=== PATIENT | female | born 1995 | race Caucasian/White ===

== ENCOUNTER 2018-02-09 02:53 | Emergency (ER) | payer BC ==
[2018-02-09 03:10] VITALS: BP 103/70; PULSE 70; RESP 18; TEMP 98.3
--- NOTE | 2018-02-09 03:27 | C.PDOC ---
History Of Present Illness Patient states she woke up and felt she had trouble breathing and went to rest room and felt congestion and lightheaded. Admits to feeling under the weather for 2 days. Time Seen by Provider: 02/09/18 03:19 Chief Complaint (Nursing): Dizziness/Lightheaded History Per: Patient History/Exam Limitations: no limitations Onset/Duration Of Symptoms: Days Past Medical History Reviewed: Historical Data, Nursing Documentation, Vital Signs Vital Signs: Last Vital Signs Temp 98.3 F 02/09/18 03:03 Pulse 70 02/09/18 03:03 Resp 18 02/09/18 03:03 BP 103/70 02/09/18 03:03 Pulse Ox - Medical History PMH: No Chronic Diseases Family History: States: Unknown Family Hx - Social History Hx Alcohol Use: No Hx Substance Use: No - Immunization History Hx Tetanus Toxoid Vaccination: No Hx Influenza Vaccination: Yes Hx Pneumococcal Vaccination: No Review Of Systems Except As Marked, All Systems Reviewed And Found Negative. Constitutional: Positive for: Malaise ENT: Positive for: Nose Congestion Cardiovascular: Negative for: Chest Pain, Palpitations Respiratory: Negative for: Cough, Shortness of Breath Gastrointestinal: Negative for: Vomiting, Abdominal Pain, Diarrhea Neurological: Negative for: Weakness, Headache, Dizziness Physical Exam - Physical Exam Appears: Non-toxic, No Acute Distress Skin: Warm, Dry Head: Atraumatic, Normacephalic Eye(s): bilateral: Normal Inspection, EOMI Ear(s): Bilateral: Normal Nose: Other (nasal congestion) Oral Mucosa: Moist Throat: Normal, No Erythema, No Exudate, No Drooling Neck: Normal ROM Chest: Symmetrical Cardiovascular: Rhythm Regular, No Murmur Respiratory: Normal Breath Sounds, No Wheezing Gastrointestinal/Abdominal: Soft, No Tenderness Extremity: Bilateral: Atraumatic, Normal ROM Neurological/Psych: Oriented x3, Normal Speech Gait: Steady Medical Decision Making Medical Decision Making: Patient appears well nontoxic and in no distress. Heart sounds regular and lungs clear bilaterally. Patient has no fever or clinical signs of pneumonia. Patient stable for discharge. Disposition Counseled Patient/Family Regarding: Diagnosis, Need For Followup - Disposition Referrals: Non [facility] Provider, [Primary Care Provider] - Disposition: HOME/ ROUTINE Disposition Time: 03:25 Condition: STABLE Additional Instructions: Follow up with your primary medical doctor or clinic in 2-5 days for further evaluation. Return to the emergency department at any time if symptoms persist or worsen. Instructions: Cough, Runny Nose, and the Common Cold (DC) Forms: [facility] (Z[place]an) - POA Present On Arrival: None - Clinical Impression Clinical Impression: Nasal congestion
== END 2018-02-09 03:37 | disposition home or self-care (01) ==
LOC: SUPCPDRO 02:53 → C.ER 02:53
DX: R09.81 Nasal congestion (principal)

== ENCOUNTER 2018-03-14 07:39 | Day surgery (SDC) | payer BC ==
[2018-03-14 08:03] VITALS: BMI 21.1
[2018-03-14] MEDS ORDERED: Propofol 10 mg/ml Inj (20 ML) ONE ×2 (08:58→09:32)
--- NOTE | 2018-03-14 08:58 | CP.SDSHP ---
Same Day Surgery H & P - History Proposed Procedure: colonoscopy Pre-Op Diagnosis: rectal bleeding - Previous Medical/Surgical History Comments: anxiety - Allergies Allergies: Allergies No Known Allergies Allergy (Unverified 03/13/18 13:01) - Physical Exam General Appearance: NAD Vital Signs: Vital Signs 03/14/18 08:07 Temperature 99.1 F Pulse Rate 54 L Respiratory 18 Rate Blood Pressure 129/65 O2 Sat by Pulse 100 Oximetry Mental Status: Alert & Oriented x3 Neuro: WNL Heart: WNL Lungs: WNL GI: WNL - {Optional Preform as Required} Abdomen: WNL - Impression Pt. Evaluated Today:Candidate for Anesthesia & Procedure: Yes - Date & Time Date: 03/14/18 Time: 08:58 Short Stay Discharge - Short Stay Discharge Admitting Diagnosis/Reason for Visit: RECTAL BLEEDING Disposition: HOME/ ROUTINE Referrals: Non [facility] Provider, [Primary Care Provider] -
[2018-03-14] MEDS ORDERED: Midazolam 2 MG/2 ML VIAL ONE (09:07)
[2018-03-14 10:30] VITALS: TEMP 97.8
[2018-03-14] MEDS ORDERED: Lactated Ringer's 1,000 ML IV ONE (10:30)
[2018-03-14 11:41] VITALS: BP 110/70; PULSE 80; RESP 20; O2SAT 100
== END 2018-03-14 11:15 | disposition home or self-care (01) ==
LOC: C.ENDO 07:39
PROVIDERS: ATTEND Internal Medicine Gastroenterology
DX: K62.5 Hemorrhage of anus and rectum (principal); D12.2 Benign neoplasm of ascending colon; D12.4 Benign neoplasm of descending colon; K64.8 Other hemorrhoids
CPT/HCPCS: 45384; 84703; 88305; J2250; J2704; J3010; J7120

== ENCOUNTER 2018-06-13 23:59 | Emergency (ER) | payer BC ==
[2018-06-14 00:12] VITALS: BMI 22.1
[2018-06-14] MEDS ORDERED: Sodium Chloride 0.9% 1,000 ML IV ONE (00:58)
[2018-06-14] MEDS ORDERED: Morphine 4 MG/ML VIAL ONE (01:15)
[2018-06-14] MEDS ORDERED: Sodium Chloride 0.9% 1,000 ML ONE (01:15)
--- NOTE | 2018-06-14 01:15 | C.PDOC ---
History Of Present Illness 23 year old female presents to the ER with RUQ abdominal pain described as severe that began tonight. Denies nausea, vomiting, fever, or chills. Chief Complaint (Nursing): Abdominal Pain History Per: Patient History/Exam Limitations: no limitations Onset/Duration Of Symptoms: Hrs Current Symptoms Are (Timing): Still Present Location Of Pain/Discomfort: RUQ Radiation Of Pain To:: None Quality Of Discomfort: Other (Severe) Associated Symptoms: denies: Fever, Chills, Nausea, Vomiting Exacerbating Factors: None Alleviating Factors: None Recent travel outside of the [place]: No Past Medical History Reviewed: Historical Data, Nursing Documentation, Vital Signs Vital Signs: Last Vital Signs Temp 98.1 F 06/14/18 00:13 Pulse 115 H 06/14/18 00:13 Resp 19 06/14/18 00:13 BP 138/83 06/14/18 00:13 Pulse Ox 100 06/14/18 00:13 - Medical History PMH: Fibromyalgia Denies: Chronic Kidney Disease Surgical History: Endoscopy Family History: States: Unknown Family Hx - Social History Hx Alcohol Use: No Hx Substance Use: No - Immunization History Hx Tetanus Toxoid Vaccination: No Hx Influenza Vaccination: Yes Hx Pneumococcal Vaccination: No Review Of Systems Constitutional: Negative for: Fever, Chills Cardiovascular: Negative for: Chest Pain, Palpitations Respiratory: Negative for: Cough, Shortness of Breath Gastrointestinal: Positive for: Abdominal Pain. Negative for: Nausea, Vomiting, Diarrhea Neurological: Negative for: Weakness, Numbness Physical Exam - Physical Exam Appears: Non-toxic Skin: Normal Color, Warm, Dry Head: Atraumatic, Normacephalic Eye(s): bilateral: Normal Inspection Oral Mucosa: Moist Neck: Normal, Supple Chest: Symmetrical, No Tenderness Cardiovascular: Rhythm Regular Respiratory: Normal Breath Sounds, No Rales, No Rhonchi, No Wheezing Gastrointestinal/Abdominal: Soft, Tenderness (RUQ, mostly RLQ), No Guarding, No Rebound Back: No CVA Tenderness Neurological/Psych: Oriented x3, Normal Speech ED Course And Treatment - Laboratory Results Result Diagrams: 06/14/18 01:20 06/14/18 01:20 O2 Sat by Pulse Oximetry: 100 (Room air) Pulse Ox Interpretation: Normal Progress Note: Blood work, urinalysis, and CT abd/pel ordered. IV fluids and morphine administered. On reevaluation, patient feels markedly better, improved, no longer having abdominal pain, abdomen soft nontender. Disposition Counseled Patient/Family Regarding: Diagnosis - Disposition Referrals: [facility] [Outside] Disposition: HOME/ ROUTINE Disposition Time: 04:16 Condition: STABLE Instructions: Constipation, Adult (DC), Acute Abdomen (Belly Pain) Forms: [facility] [employer] (Lithuanian) - POA Present On Arrival: None - Clinical Impression Clinical Impression: Abdominal pain, Constipation - Scribe Statement The provider has reviewed the documentation as recorded by the Scribsang Núñez All medical record entries made by the Cassiibsang were at my direction and personally dictated by me. I have reviewed the chart and agree that the record accurately reflects my personal performance of the history, physical exam, medical decision making, and the department course for this patient. I have also personally directed, reviewed, and agree with the discharge instructions and disposition.
[2018-06-14 01:23] LABS: BASO % 0.1 % (0.0-2.0); EOS % 0.6 % (0.0-4.0); HEMOGLOBIN 14.4 g/dL (11.0-16.0); LYMPH # 0.4 K/uL (1.0-4.3); LYMPH % 6.2 % (20.0-40.0); MEAN CELL VOLUME 87.2 fL (81.0-99.0); MEAN CORPUSCULAR HEMOGLOBIN 29.3 pg (27.0-31.0); MEAN CORPUSCULAR HGB CONC 33.6 g/dL (33.0-37.0); MEAN PLATELET VOLUME 8.1 fL (7.2-11.7); MONO # 0.3 K/uL (0.0-0.8); MONO % 5.7 % (0.0-10.0); NEUT # 5.3 K/uL (1.8-7.0); NEUT % 87.4 % (50.0-75.0); PLATELET COUNT 273 K/uL (130-400); RBC 4.93 Mil/uL (3.80-5.20); RED CELL DISTRIBUTION WIDTH 13.3 % (11.5-14.5); WHITE BLOOD COUNT 6.1 K/uL (4.8-10.8)
[2018-06-14] MEDS ORDERED: Iohexol 240 (50 ml) ONE (01:25)
[2018-06-14 01:28] LABS: SQUAMOUS EPITHIAL 4 /hpf (0-5); URINE BILIRUBIN NEGATIVE (NEGATIVE); URINE BLOOD NEGATIVE (NEGATIVE); URINE CLARITY Hazy (Clear); URINE COLOR Yellow (YELLOW); URINE GLUCOSE (UA) NORMAL (Normal); URINE LEUKOCYTE ESTERASE NEG Leu/uL (Negative); URINE PROTEIN NEGATIVE (NEGATIVE); URINE UROBILINOGEN NORMAL mg/dL (0.2-1.0)
[2018-06-14 01:31] LABS: HCG,QUALITATIVE URINE NEGATIVE (NEGATIVE)
[2018-06-14 01:35] LABS: ALB/GLOB RATIO 1.5 (1.0-2.1); ALBUMIN 4.9 g/dL (3.5-5.0); ALT/SGPT 21 U/L (9-52); AST/SGOT 23 U/L (14-36); BLOOD UREA NITROGEN 19 mg/dL (7-17); CALCIUM 9.4 mg/dl (8.6-10.4); GFR NON-AFRICAN AMERICAN > 60; LIPASE 58 U/L (23-300)
[2018-06-14] MEDS ORDERED: Iohexol 240 (50 ml) PO ONE (01:42)
[2018-06-14 02:14] LABS: BANDS 9 % (0-2); LYMPHOCYTE 7 % (20-40); MONOCYTE 4 % (0-10); NEUTROPHIL 80 % (50-75); PLATELET ESTIMATE NORMAL (NORMAL); TOTAL CELLS COUNTED 100
[2018-06-14] MEDS ORDERED: Iodixanol 320 MG/ML 100 ML BOTTLE IV ONE (03:11)
[2018-06-14 04:25] VITALS: BP 147/78; PULSE 74; RESP 17; TEMP 98
--- NOTE | 2018-06-14 07:57 | CT ---
CT abdomen and pelvis HISTORY: Right lower quadrant abdominal pain. Evaluate for appendicitis. Comparison: None available. TECHNIQUE: Multiple contiguous axial images were performed through the abdomen and pelvis with the use of intravenous contrast. Subsequently, sagittal and coronal reformatted images were obtained. Findings: Lung bases are clear. No pleural or pericardial effusion. Prominent liver. Distended gallbladder. Motion artifact. Spleen is preserved. Adrenal glands are preserved. Pancreas is preserved. Upper abdominal bowel is grossly preserved. Right kidney: No calculi or hydronephrosis. Left kidney: Mild fullness of the left renal collecting system. Urinary bladder is preserved. Heterogeneous uterus and bilateral adnexa. Fecal retention in the colon. Appendix is partially imaged 116 through 131 measuring up to 6.4 millimeters in width, grossly preserved. Few shotty para-aortic and inguinal lymph nodes. Degenerative changes in the spine. Impression: Fecal retention in the colon. Nonspecific mild fullness of the left renal collecting system. Additional findings as above. A preliminary report was generated at 4:08 a.m. on 06/14/[address] Roma Swan from [employer].
[2018-06-18 14:08] VITALS: O2SAT 100
== END 2018-06-14 04:25 | disposition home or self-care (01) ==
LOC: C.ER 23:59
DX: K59.00 Constipation, unspecified (principal); R10.11 Right upper quadrant pain
CPT/HCPCS: 74177; 80053; 81001; 81025; 83690; 84703; 85025; 96374; 96375; 96376; 99285; J1885; J2270; J2405; J7030; Q9966; Q9967